=== PATIENT | female | born 1960 | race Caucasian/White ===

== ENCOUNTER 2016-08-05 12:53 | Emergency (ER) | payer OTHER ==
[2016-08-05 13:00] VITALS: BP 149/70; PULSE 100; TEMP 98.5; BMI 42.7
--- NOTE | 2016-08-05 14:42 | PDOC ---
History of Present Illness - General Chief Complaint: Rash Stated Complaint: RASH ON BREAST Time Seen by Provider: 08/05/16 14:00 History Source: Patient Exam Limitations: No Limitations - History of Present Illness Initial Comments: 08/05/16 23:06 Chief complaint: Rash under both breast History of present illness: Patient is a 55-year-old female with a history non- insulin-dependent diabetes, schizophrenia, and HTN here today complaining of redness under both pendulous breasts. Patient reports having this rash previously. Patient denies that this rash is pruritic. Patient denies any other symptoms. 08/05/16 23:07 Timing/Duration: getting worse (rash under breasts left worse than right ) Severity: moderate Associated Symptoms: reports: rash (under bilateral breast worse on left) Past History - Past Medical History Allergies/Adverse Reactions: Allergies Allergy/AdvReac Type Severity Reaction Status Date / Time No Known Allergies Allergy Verified 08/05/16 13:00 Home Medications: Ambulatory Orders Aripiprazole 30 mg PO DAILY 02/23/16 Aspirin [ASA -] 81 mg PO DAILY 02/23/16 Atorvastatin Ca [Lipitor] 10 mg PO HS 02/23/16 Benztropine Mesylate [Cogentin -] 0.5 mg PO BID 02/23/16 Clonazepam [Klonopin -] 0.5 mg PO BID 02/23/16 Docusate Sodium [Colace -] 100 mg PO DAILY 02/23/16 Furosemide [Lasix -] 20 mg PO Q48H 02/23/16 Gabapentin [Neurontin] 100 mg PO BID 02/23/16 Potassium Chloride 20 meq PO DAILY 02/23/16 Quetiapine Fumarate [Seroquel] 300 mg PO HS 02/23/16 Acetaminophen [Tylenol .Regular Strength -] 650 mg PO Q4H PRN #0 tablet Alcohol Antiseptic Pads [Easy Touch Alcohol Prep Pads] 1 each TP ASDIR #1 box Blood Sugar Diagnostic [Test Strips] 1 each MC ASDIR #1 box 02/26/16 Cefuroxime Axetil [Ceftin -] 250 mg PO BID #8 tablet 02/26/16 Insulin Aspart [Novolog Flexpen] See Protocol SQ ACHS #7 syringe 02/26/16 Insulin Detemir [Levemir Flextouch] 20 unit SQ AM #5 syringe 02/26/16 Metformin HCl [Glucophage -] 500 mg PO BID@0700,1630 #60 tablet 02/26/16 Miconazole Nitrate [Monistat-7 -] 1 applic VG HS tube 02/26/16 Miconazole Nitrate [Monistat-7 Vaginal Suppository -] 100 mg PV HS supp.vag Miscellaneous Medical Supply [Glucometer Device] 1 each .ROUTE ASDIR #1 kit Nystatin Powder [Nystop Powder -] 1 applic TP DAILY #7 applic 02/26/16 Pen Needle, Diabetic [Insulin Pen Needle] 1 each MC ASDIR #100 dis.needle Wadding [Cotton Balls] 1 each MC ASDIR #1 bag 02/26/16 Nystatin Powder [Nystop Powder -] 15 gm TP BID #1 powder 08/05/16 Diabetes: Yes HTN: Yes Psychiatric Problems: Yes (Schizophrenia,) Other medical history: gout, obesity - Psycho/Social/Smoking Cessation Hx Anxiety: Yes (paranoid schizophrenia) Suicidal Ideation: No Smoking History: Never smoked Have you smoked in the past 12 months: No Information on smoking cessation initiated: No Hx Alcohol Use: No Drug/Substance Use Hx: No Substance Use Type: None Review of Systems - Review of Systems Able to Perform ROS?: Yes Constitutional: No: Symptoms Reported HEENTM: No: Symptoms Reported Respiratory: No: Symptoms reported Cardiac (ROS): No: Symptoms Reported ABD/GI: No: Symptoms Reported : No: Symptoms Reported Musculoskeletal: No: Symptoms Reported Integumentary: Yes: Rash (under b/l breast left worse) Neurological: No: Symptoms reported *Physical Exam - Vital Signs Last Vital Signs Temp Pulse Resp BP Pulse Ox 98.5 F 100 H 17 149/70 97 08/05/16 12:58 08/05/16 12:58 08/05/16 12:58 08/05/16 12:58 08/05/16 12:58 - Physical Exam General Appearance: Yes: Appropriately Dressed Respiratory/Chest: positive: Lungs Clear, Normal Breath Sounds. negative: Chest Tender, Respiratory Distress Integumentary: positive: Rash (erythematous rash with well defined border under b/l pendulous breass at skin folds left worse than right ) Neurologic: positive: Alert, Normal Response, Responsive Medical Decision Making - Medical Decision Making 08/05/16 23:07 Patient is a 55-year-old female with a history emi-jiwfhnr-hckvrnfev diabetes, schizophrenia, and HTN here today complaining of redness under both pendulous breasts. Patient reports having this rash previously. Patient denies that this rash is pruritic. Patient denies any other symptoms. Rash nelida under both breasts Plan: Nystatin powder apply under breasts twice daily Wash breasts twice daily with antibacterial soap and dry well lie down and allow you abreast air out lift them so air hits underneath them Follow up with vegetable harvest machine operator as soon as possible *DC/Admit/Observation/Transfer Diagnosis at time of Disposition: Erythematous rash - Discharge Dispostion Disposition: HOME Condition at time of disposition: Stable - Prescriptions Prescriptions: Nystatin Powder [Nystop Powder -] 15 gm TP BID #1 powder - Patient Instructions Additional Instructions: Rash under both breasts with antibacterial soap dry thoroughly down and lift both breasts and let them out well at least twice a day Follow up with vegetable harvest machine operator if this does not improve Dr. Lewis [phone] Return to emergency room if symptoms worsen Patient states understanding of discharge instructions and questions were answered
== END 2016-08-05 15:19 | disposition home or self-care (01) ==
LOC: JERFT 12:53 → JER 12:53 → JERFT 15:19
DX: B37.89 Other sites of candidiasis (principal); I10 Essential (primary) hypertension; Z79.84 Long term (current) use of oral hypoglycemic drugs; F20.9 Schizophrenia, unspecified; M10.9 Gout, unspecified; E66.01 Morbid (severe) obesity due to excess calories; Z68.41 Body mass index [BMI] 40.0-44.9, adult
CPT/HCPCS: 99281-25

== ENCOUNTER 2017-01-10 11:18 | Emergency (ER) | payer OTHER ==
[2017-01-10 11:46] VITALS: BP 139/78; PULSE 110; TEMP 99.6; BMI 42.5
[2017-01-10] MEDS ORDERED: IBUPROFEN 600 MG TABLET (FP) PO ONE ×2 (12:28→14:08)
--- NOTE | 2017-01-10 13:24 | PDOC ---
History of Present Illness - General Chief Complaint: Toothache Stated Complaint: FACIAL SWELLING Time Seen by Provider: 01/10/17 12:00 History Source: Patient - History of Present Illness Initial Comments: 01/10/17 12:21 Patient is a 55-year-old female with a history of [id number]-lyyagwwls diabetes , schizophrenia, and hypertension here today complaining of dental pain. Patient states that she noticed some redness in her gums 2 days ago. She was taking ibuprofen which helps the pain. Today she states that the redness on her gums is worse and she notices a rash on her face. Denies fevers, chills, weakness. Denies difficulty swallowing. Denies chest pain, palpitations, changes in vision, double vision, floaters, spots, flashing lights, nausea, vomiting and diarrhea. Past History - Travel Traveled outside of the country in the last 30 days: No - Past Medical History Allergies/Adverse Reactions: Allergies Allergy/AdvReac Type Severity Reaction Status Date / Time No Known Allergies Allergy Verified 08/05/16 13:00 Home Medications: Ambulatory Orders Aripiprazole 30 mg PO DAILY 02/23/16 Aspirin [ASA -] 81 mg PO DAILY 02/23/16 Atorvastatin Ca [Lipitor] 10 mg PO HS 02/23/16 Benztropine Mesylate [Cogentin -] 0.5 mg PO BID 02/23/16 Clonazepam [Klonopin -] 0.5 mg PO BID 02/23/16 Docusate Sodium [Colace -] 100 mg PO DAILY 02/23/16 Furosemide [Lasix -] 20 mg PO Q48H 02/23/16 Gabapentin [Neurontin] 100 mg PO BID 02/23/16 Potassium Chloride 20 meq PO DAILY 02/23/16 Quetiapine Fumarate [Seroquel] 300 mg PO HS 02/23/16 Acetaminophen [Tylenol .Regular Strength -] 650 mg PO Q4H PRN #0 tablet Cefuroxime Axetil [Ceftin -] 250 mg PO BID #8 tablet 02/26/16 Insulin Aspart [Novolog Flexpen] See Protocol SQ ACHS #7 syringe 02/26/16 Insulin Detemir [Levemir Flextouch] 20 unit SQ AM #5 syringe 02/26/16 Metformin HCl [Glucophage -] 500 mg PO BID@0700,1630 #60 tablet 02/26/16 Nystatin Powder [Nystop Powder -] 1 applic TP DAILY #7 applic 02/26/16 Pen Needle, Diabetic [Insulin Pen Needle] 1 each ASDIR #100 dis.needle Amox-Tr/K Cl [Augmentin - 875Mg Tablet] 1 tab PO BID #20 tablet 01/10/17 Diabetes: Yes HTN: Yes Psychiatric Problems: Yes (Schizophrenia,) - Psycho/Social/Smoking Cessation Hx Anxiety: Yes (paranoid schizophrenia) Suicidal Ideation: No Smoking History: Never smoked Have you smoked in the past 12 months: No Information on smoking cessation initiated: No Hx Alcohol Use: No Drug/Substance Use Hx: No Substance Use Type: None Review of Systems - Review of Systems Able to Perform ROS?: Yes Is the patient limited Croatian proficient: No Constitutional: No: Chills, Fever, Weakness HEENTM: Yes: Mouth Pain, Dental Problems. No: Eye Pain, Blurred Vision, Tearing , Recent change in vision, Double Vision, Difficulty Swallowing, Mouth Swelling Cardiac (ROS): No: Chest Pain, Lightheadedness, Palpitations ABD/GI: No: Diarrhea, Nausea, Vomiting Integumentary: Yes: Erythema (L upper gum) Neurological: No: Headache, Numbness, Tingling, Weakness *Physical Exam - Vital Signs Last Vital Signs Temp Pulse Resp BP Pulse Ox 99.6 F 110 H 18 139/78 100 01/10/17 11:20 01/10/17 11:20 01/10/17 11:20 01/10/17 11:20 01/10/17 11:20 - Physical Exam General Appearance: Yes: Nourished, Appropriately Dressed, Other (AAOx3 sitting in hospital bed with tangental thinking). No: Apparent Distress HEENT: positive: EOMI, SUNI, Orbits (erythema around the L lower eye lid with mild swelling under the L eye), Other (Poor dentition. Missing most of her upper teeth. Inflammation and redness of the socket of the L upper canine tooth. No obvious abscess. ). negative: Muffled/Hoarse voice, Pharyngeal Erythema, Tonsillar Exudate, Tonsillar Erythema Neck: positive: Trachea midline, Supple. negative: Tender, Rigid, Lymphadenopathy (R), Lymphadenopathy (L) Respiratory/Chest: positive: Lungs Clear, Normal Breath Sounds. negative: Respiratory Distress, Accessory Muscle Use Cardiovascular: positive: Regular Rhythm, Regular Rate, S1, S2 (present) Integumentary: positive: Dry, Warm, Rash (with mild erythema of the L medial cheek and L lower eye lid) Neurologic: positive: resizer operator II-XII NML intact, Fully Oriented, Alert, Normal Mood/ Affect, Normal Response (Normal response given her schizophrenia), Motor Strength 5/5 ED Treatment Course - LABORATORY CBC & Chemistry Diagram: 01/10/17 13:01 01/10/17 13:01 Medical Decision Making - Medical Decision Making 01/10/17 13:34 Patient is a 56-year-old female who presents with a dental infection with associated left facial swelling. Appearance is most consistent with a periorbital cellulitis with involvement to the base of the lower eyelid. Eye exam is intact with no visual changes, no photophobia, and no pain with eye movement. Suspicion for orbital cellulitis is low at this time. We'll draw labs at this time and blood cultures. If labs are negative will send home with antibiotic treatment. 01/10/17 16:14 Lab work is unremarkable at this time. Blood cultures are drawn. Will discharge home with Augmentin. Will give first dose now. Pt. is given strict return protocol to return if she has worsening vision, pain with eye movements, fevers , chills, or worsening pain. *DC/Admit/Observation/Transfer Diagnosis at time of Disposition: Dental infection, Periorbital cellulitis of left eye - Discharge Dispostion Disposition: HOME Condition at time of disposition: Stable Admit: No - Prescriptions Prescriptions: Amox-Tr/K Cl [Augmentin - 875Mg Tablet] 1 tab PO BID #20 tablet - Referrals Referrals: Blanca Mckeon MD [Primary Care Provider] - - Patient Instructions Printed Discharge Instructions: DI for Dental Pain Additional Instructions: You have a dental infection, which has gone up your cheek. Your lab work was normal today. Take the antibiotic as prescribed and take the whole prescription even if you are feeling better. Follow up with your Dentist as soon as possible. You may use warm water gargles and ibuprofen as needed for pain. Return to the ED immediately if you have any changes in your vision, pain with eye movements, fevers, chills, or worsening pain.
[2017-01-10 15:06] LABS: BASOPHIL 1.4 % (0-2.0); EOSINOPHIL 2.6 % (0-4.5); MCH 29.3 pg (25.7-33.7); MCHC 32.8 g/dl (32.0-36.0); MEAN CELL VOLUME 89.5 fl (80-96); MEAN PLT VOLUME 8.1 fl (7.5-11.1); NEUTROPHILS 71.4 % (42.8-82.8); PLATELET COUNT 284 K/MM3 (134-434); RDW 15.4 % (11.6-15.6); WHITE BLOOD COUNT 10.6 K/mm3 (4.0-10.0)
[2017-01-10 15:31] LABS: CALCIUM 9.3 mg/dL (8.5-10.1); COCKROFT - GAULT 125.9445
--- NOTE | 2017-01-18 14:43 | EKG ---
Test Reason : Blood Pressure : / mmHG Vent. Rate : 110 BPM Atrial Rate : 110 BPM P-R Int : 148 ms QRS Dur : 088 ms QT Int : 324 ms P-R-T Axes : 055 022 034 degrees QTc Int : 438 ms SINUS TACHYCARDIA POSSIBLE LEFT ATRIAL ENLARGEMENT BORDERLINE ECG WHEN COMPARED WITH ECG OF 19-JAN-2008 11:30, NO SIGNIFICANT CHANGE WAS FOUND Confirmed by SHENA CARCAMO MD ([id number]) on 01/18/2017 2:43:28 PM Referred By: Confirmed By:SHENA CARCAMO MD
== END 2017-01-10 18:06 | disposition home or self-care (01) ==
LOC: JER 11:18
DX: K04.7 Periapical abscess without sinus (principal); L03.213 Periorbital cellulitis; F20.0 Paranoid schizophrenia; I10 Essential (primary) hypertension; E11.9 Type 2 diabetes mellitus without complications
CPT/HCPCS: 36415; 80048; 85025; 87040; 93005; 93010; 99282-25